=== PATIENT | female | born 1970 | race Caucasian/White ===

== ENCOUNTER 2025-02-22 07:15 | Day surgery (SDC) | payer OTHER ==
[2025-02-18 12:15] VITALS: BMI 28.0
[2025-02-22] MEDS ORDERED: Lidocaine 1% w/Epinephrine 1:200K 30 ML VIAL ONE (07:36)
[2025-02-22] MEDS ORDERED: Sevoflurane 250 ML INH ANEST BOTTLE ONE (07:36)
[2025-02-22] MEDS ORDERED: SUGAMMADEX SODIUM 200 MG/2 ML VIAL ONE (08:28)
[2025-02-22] MEDS ORDERED: Rocuronium Bromide 10 MG/ML (10ML VIAL) ONE (08:28)
[2025-02-22] MEDS ORDERED: PROPOFOL 20 ML ONE (08:28)
[2025-02-22] MEDS ORDERED: HYDROcodone/Acetaminophen 5/325 mg Tablet ONE (11:54)
== END 2025-02-22 13:00 | disposition home or self-care (01) ==
LOC: CSHSDC 07:15
PROVIDERS: ATTEND Otolaryngology Otolaryngic Allergy
PROC: 0GBR0ZZ Excision of Parathyroid Gland, Open Approach (ICD-10-PCS; principal; 2025-02-22)
DX: E21.0 Primary hyperparathyroidism (principal); G43.909 Migraine, unspecified, not intractable, without status migrainosus; Z85.828 Personal history of other malignant neoplasm of skin; Z90.710 Acquired absence of both cervix and uterus
CPT/HCPCS: 36415; 83970; 88305; 88331; J0169; J2250; J2704